=== PATIENT | female | born 1980 ===

== ENCOUNTER 2020-11-18 07:27 | Outpatient (CLI) | payer BC ==
[2020-11-18 23:51] LABS: SARS-CoV-2 PCR by NAA Not Detected (NotDetected)
== END 2020-11-18 07:28 | disposition home or self-care (01) ==
LOC: CSHLAB 07:27
PROVIDERS: ATTEND Obstetrics & Gynecology
DX: Z20.822 Contact with and (suspected) exposure to COVID-19 (principal)
CPT/HCPCS: 87635; U0003; U0005

== ENCOUNTER 2020-11-21 00:40 | Inpatient (IN) | payer BC ==
[2020-11-21] MEDS ORDERED: NS w/ Oxytocin 30 units 500 ML ONE ×2 (00:54→02:33)
[2020-11-21] MEDS ORDERED: Lidocaine 1% (PF) 30 ML VIAL ONE ×2 (00:55→01:43)
[2020-11-21] MEDS ORDERED: Misoprostol 200 MCG TAB ONE (00:56)
[2020-11-21] MEDS ORDERED: Methylergonovine 0.2 MG/ML VIAL ONE (00:56)
[2020-11-21 01:36] VITALS: BMI 25.9
[2020-11-21] MEDS ORDERED: Ondansetron PF 4 MG/2 ML Vial IVP PRN (02:09)
[2020-11-21] MEDS ORDERED: Promethazine HCl 25 MG/ML VIAL IM PRN (02:09)
[2020-11-21] MEDS ORDERED: hydrALAZINE 20 MG/ML VIAL SLOW IVP PRN ×2 (02:09→04:53)
[2020-11-21] MEDS ORDERED: Lidocaine 1% (PF) 30 ML VIAL SC PRN (02:09)
[2020-11-21] MEDS ORDERED: Butorphanol Tartrate 1 MG/ML VIAL SLOW IVP PRN (02:09)
[2020-11-21] MEDS ORDERED: HYDROcodone/Acetaminophen 5/325 mg Tablet PO PRN ×4 (02:09→04:53)
[2020-11-21] MEDS ORDERED: NS / Oxytocin 40 units/1000ml 1,000 ML IV PRN (02:09)
[2020-11-21] MEDS ORDERED: Ibuprofen 800 MG TAB PO PRN (02:09)
[2020-11-21] MEDS ORDERED: Lactated Ringer's 1,000 ML IV SCH ×2 (02:15)
[2020-11-21 02:41] LABS: Hemoglobin 12.7 g/dL (12.0-15.5); Mean Corpuscular HGB CONC 33.9 g/dL (32.0-36.0); Mean Corpuscular Hemoglobin 33.4 pg (27.0-33.0); Mean Corpuscular Volume 98.7 fl (81.6-98.3); Mean Platelet Volume 11.9 fl (7.4-10.4); Platelet Count 240 10x3/uL (150-450); RBC Distribution Width 12.9 % (11.5-14.5); White Blood Cell (WBC) Count 13.8 10x3/uL (3.5-10.5)
[2020-11-21 03:03] LABS: Hep B Surf Ag Non-Reactive S/CO (NonReactive)
[2020-11-21 03:05] LABS: HBSAg Index 0.19 S/CO (0-0.99); Syphilis Antibody Nonreactive (Nonreactive); Syphilis Antibody Index 0.12 S/CO (<1.00 Non-Reactive)
[2020-11-21] MEDS ORDERED: NS / Oxytocin 40 units/1000ml 1,000 ML IV SCH (04:53)
[2020-11-21] MEDS ORDERED: diphenhydrAMINE 25 MG CAP PO PRN (04:53)
[2020-11-21] MEDS ORDERED: Preparation H Ointment 28 GM TUBE PR PRN (04:53)
[2020-11-21] MEDS ORDERED: Bisacodyl 10 MG SUPP PR PRN (04:53)
[2020-11-21] MEDS ORDERED: Benzocaine-Menthol 82.5 ML CAN TOP PRN (04:53)
[2020-11-21] MEDS ORDERED: Lanolin Ointment 7 GM TUBE TOP PRN (04:53)
[2020-11-21] MEDS: Ibuprofen 800 MG TAB PO SCH ×3 (05:16→20:44)
[2020-11-21] MEDS: Ferrous Sulfate 325 MG TAB PO SCH ×2 (08:37→17:11)
[2020-11-21] MEDS: Prenatal Vitamin 1 TAB PO SCH (08:37)
[2020-11-21] MEDS: Docusate Calcium (SURFAK) 240 MG CAP PO SCH ×2 (08:37→20:44)
[2020-11-21] MEDS ORDERED: Milk Of Magnesia 30 ML UDCUP PO SCH (09:00)
[2020-11-21] MEDS ORDERED: Adacel (T-DAP) 0.5 ML SYRINGE IM ONE (09:00)
[2020-11-21] MEDS ORDERED: Milk Of Magnesia 30 ML UDCUP PO PRN (09:29)
[2020-11-21] MEDS: Polyethylene Glycol 3350 17 GM Packet PO SCH (14:17)
[2020-11-22] MEDS: Ibuprofen 800 MG TAB PO SCH (04:49)
[2020-11-22 06:19] LABS: Hemoglobin 10.2 g/dL (12.0-15.5)
[2020-11-22] MEDS: Ferrous Sulfate 325 MG TAB PO SCH (07:31)
[2020-11-22] MEDS: Docusate Calcium (SURFAK) 240 MG CAP PO SCH (07:58)
[2020-11-22] MEDS: Prenatal Vitamin 1 TAB PO SCH (07:58)
[2020-11-22] MEDS: Polyethylene Glycol 3350 17 GM Packet PO SCH (07:58)
[2020-11-22 08:06] VITALS: BP 103/50; TEMP 97.6
== END 2020-11-22 13:05 | disposition home or self-care (01) | DRG 768 ==
LOC: CSHLD/OP 00:40 → CSHLD 00:44 → CSHPP 04:50
PROVIDERS: ADMIT Obstetrics & Gynecology; ATTEND Obstetrics & Gynecology
PROC: 10E0XZZ Delivery of Products of Conception, External Approach (ICD-10-PCS; principal; 2020-11-21)
PROC: 0DQR0ZZ Repair Anal Sphincter, Open Approach (ICD-10-PCS; 2020-11-21)
PROC: 3E0234Z Introduction of Serum, Toxoid and Vaccine into Muscle, Percutaneous Approach (ICD-10-PCS; 2020-11-21)
DX: O62.3 Precipitate labor (principal); Z37.0 Single live birth; Z3A.40 40 weeks gestation of pregnancy; O70.20 Third degree perineal laceration during delivery, unspecified; O98.52 Other viral diseases complicating childbirth; Z20.822 Contact with and (suspected) exposure to COVID-19; O26.893 Other specified pregnancy related conditions, third trimester; O66.0 Obstructed labor due to shoulder dystocia; O90.81 Anemia of the puerperium; D64.9 Anemia, unspecified; B00.9 Herpesviral infection, unspecified; Z88.0 Allergy status to penicillin; Z88.2 Allergy status to sulfonamides; Z67.21 Type B blood, Rh negative
CPT/HCPCS: 36415; 85014; 85018; 85027; 85461; 86780; 86850; 86870; 86900; 86901; 87340; 87635; 90384; 96372; J2001; J2590; U0003; U0005